=== PATIENT | male | born 1975 | race Two or more races ===

== ENCOUNTER 2020-10-25 02:50 | Emergency (ER) | payer BC, OTHER ==
[2020-10-25] MEDS ORDERED: Ketorolac 15 MG/ML SDV IM ONE (03:30)
--- NOTE | 2020-10-25 05:03 | EDM.PDOC ---
ED HPI GENERAL MEDICAL PROBLEM - General Chief Complaint: Respiratory Problem Stated Complaint: FEVER, COLD SYMPTOMS, COVID EXPOSURE Time Seen by Provider: 10/25/20 03:00 - History of Present Illness INITIAL COMMENTS - FREE TEXT/NARRATIVE: CHIEF COMPLAINT(S): Headache HISTORY OF PRESENT ILLNESS: This is a 45-year-old man with a past medical history of hypertension and prior history of migraine who comes to the emergency department with a chief complaint of headache. The patient states that he presents to the emergency department because he has had a fogginess in his brain to where he can think and feels like his head is heavy. He states that he has a headache which is located throughout his head not any specific area not associated with any numbness, tingling, weakness, trouble walking, trouble speaking, trouble swallowing. He describes the pain as dull and throbbing rated 4-5 out of 10 not associated with any light sensitivity. He denies any aggravating factors or relieving factors. He states that he did take ibuprofen earlier today but it did not seem to help. He denies any runny nose, shortness of breath, congestion. He states that he feels like his lungs are dry but denies any cough or shortness of breath. He states that he is mainly concerned because his brother was just tested positive for Covid and he was with him. He denies any other symptoms. He denies any history of CAD or CHF prior history of DVT or PE or recent travel or recent surgery. REVIEW OF SYSTEMS: Constitutional: Denies fever, chills. Eyes: Denies eye pain Ears, Nose, Mouth, & Throat: Denies earache, sore throat, runny nose Cardiovascular: Denies chest pain Respiratory: Positive for dry lungs. Denies shortness of breath or cough Gastrointestinal: Denies Nausea, vomiting, diarrhea, hematochezia. Genitourinary: Denies hematuria Skin:Denies a rash MSK: Denies joint pain Neurological: Positive for headache. Denies numbness, tingling, weakness Psychiatric: Denies depression PAST MEDICAL HISTORY: As per history of present illness and as reviewed below otherwise noncontributory. SURGICAL HISTORY: As per history of present illness and as reviewed below otherwise noncontributory. SOCIAL HISTORY: As per history of present illness and as reviewed below otherwise noncontributory. FAMILY HISTORY: As per history of present illness and as reviewed below otherwise noncontributory. EXAMINATION OF ORGAN SYSTEMS/BODY AREAS: Constitutional: Blood pressure was 138/83, heart rate 103, respiratory rate 18 with an oxygen saturation 94% on room air. Temperature 37.5 General: Overall well-appearing man who is in no acute distress. Psychiatric: Appropriate mood and affect. Eyes: No scleral icterus or conjunctival erythema pupils are equal round reactive to light. Extraocular movements intact. No vertical or horizontal nystagmus. ENMT: Moist mucous membranes. No pharyngeal erythema Cardiovascular: Regular, rate, and rhythm. No gallops, murmurs, or rubs. Bilateral upper extremity pulses symmetric and intact. No peripheral edema. No JVD. Respiratory: Lungs clear to auscultation bilaterally. No wheezes, rales, or rhonchi. Patient is speaking in full sentences. Gastrointestinal: Soft, non-tender, non-distended. Normoactive bowel sounds Genitourinary: No suprapubic tenderness Musculoskeletal: Normal range of motion. Skin: No lesions or abrasions. Neurological: AOx4. CN grossly intact. Stregth 5/5 in bilateral upper and lower extremity. Sensation is intact bilaterally in upper and lower extremity. Gait appears normal. Finger to nose, heel to lopez, rapid alternating movements intact. MEDICAL DECISION MAKING AND COURSE IN THE ED WITH INTERPRETATION/REVIEW OF DIAGNOSTIC STUDIES: This is a 45-year-old man and with a past medical history of hypertension and migraine who comes to the emergency department with borderline hypoxia with a known Covid exposure who is experiencing a headache who is neurologically intact. At this time we will provide the patient with Toradol for pain relief. I do not believe any labs or imaging are indicated. Will obtain a Covid swab. Laboratory: Covid was positive After lab I did discuss the results with the patient. I did discuss him at this time that he needed to quarantine and that he should continue to treat with Tylenol and Motrin and to purchase an [id number] pulse oximetry. He is to return for any new or worsening symptoms and strict return precautions were described to the patient. He was amenable to discharge and had no further questions. DISPOSITION: The patient was discharged home in stable condition. The patient will follow up with his primary care physician. CONDITION: Fair PROCEDURES: None FINAL IMPRESSION(S)/DIAGNOSES: 1. Acute headache likely secondary to COVID-19 2. Acute COVID-19 infection Juan Haji M.D. - Related Data Allergies Allergy/AdvReac Type Severity Reaction Status Date / Time diclofenac Allergy Vomiting Verified 10/25/20 03:23 Home Meds: Home Meds lisinopriL [Lisinopril] 20 mg PO DAILY 10/25/20 [History] Past Medical History Other HEENT History: complains of right ear irritation; no drainage, oral sx Cardiovascular History: Reports: Hypertension Social & Family History - Family History Family Medical History: No Pertinent Family History - Caffeine Use Caffeine Use: Reports: Coffee - Recreational Drug Use Recreational Drug Use: No ED ROS GENERAL - Review of Systems Review Of Systems: See Below ED EXAM, GENERAL - Physical Exam Exam: See Below Course - Vital Signs Last Recorded V/S: Last Vital Signs Temp 37.5 C 10/25/20 03:24 Pulse 98 10/25/20 05:18 Resp 18 10/25/20 05:18 BP 135/72 10/25/20 05:18 Pulse Ox 95 10/25/20 05:18 - Orders/Labs/Meds Labs: Laboratory Tests 10/25/20 Range/Units 03:45 SARS-CoV-2 RNA (ED) POSITIVE H (NEGATIVE) Meds: Medications Discontinued Medications Generic Name Dose Route Start Last Admin Trade Name Marylu PRN Reason Stop Dose Admin Ketorolac Tromethamine 15 mg 10/25/20 03:30 10/25/20 03:42 Toradol IM 10/25/20 03:31 15 mg ONETIME ONE Administration Departure - Departure Time of Disposition: 05:03 Disposition: Home, Self-Care 01 Condition: Fair Clinical Impression: COVID-19 - Discharge Information *PRESCRIPTION DRUG MONITORING PROGRAM REVIEWED*: No *COPY OF PRESCRIPTION DRUG MONITORING REPORT IN PATIENT DAVON: No Instructions: COVID-19 Frequently Asked Questions, COVID-19, What You Should Know About COVID-19 to Protect Yourself and Others - CDC, 10 Things You Can Do to Manage Your COVID-19 Symptoms at Home - [facility] - Forms: ED Department Discharge Additional Instructions: Your evaluated today on an emergent basis. At this time your symptoms are due to COVID-19. As always we recommend a 10 to 14-day quarantine. Please use Tylenol and Motrin for pain and fever. Please purchase an [id number] pulse oximetry. If your oxygen saturation is less than 92% persistently or if you develop worsening shortness of breath and cough with green sputum please return to the emergency department. Please follow-up with primary care physician Na Acosta [facility] [address] [place] [address] [facility] [address] [place] [id number] The patient is informed of any results of their evaluation and diagnostic workup and all questions are answered. They are given discharge instructions and return precautions. The patient is stable for discharge. The patient states they understand and agree with the plan and that they will return if their symptoms get worse or if they have any new concerns. The following information is given to patients seen in the emergency department who are being discharged to home. This information is to outline your options for follow-up care. We provide all patients seen in our emergency department with a follow-up referral. The need for follow-up, as well as the timing and circumstances, are variable depending upon the specifics of your emergency department visit. If you don't have a primary care physician on staff, we will provide you with a referral. We always advise you to contact your personal physician following an emergency department visit to inform them of the circumstance of the visit and for follow-up with them and/or the need for any referrals to a consulting s pecialist. The emergency department will also refer you to a specialist when appropriate. This referral assures that you have the opportunity for follow-up care with a specialist. All of these measure are taken in an effort to provide you with optimal care, which includes your follow-up. Under all circumstances we always encourage you to contact your private physician who remains a resource for coordinating your care. When calling for follow-up care, please make the office aware that this follow-up is from your recent emergency room visit. If for any reason you are refused follow-up, please contact the [facility] at and asked to speak to the emergency department charge nurse. Sepsis Event Note (ED) - Evaluation Sepsis Screening Result: No Definite Risk
[2020-10-25 06:26] VITALS: BP 135/72; PULSE 98
== END 2020-10-25 05:18 | disposition home or self-care (01) ==
LOC: MW.ED 02:50
DX: U07.1 COVID-19 (principal); I10 Essential (primary) hypertension
CPT/HCPCS: 87635; 96372; 99284; J1885; 99282; U0002

== ENCOUNTER 2021-07-30 08:18 | Day surgery (SDC) | payer BC, OTHER ==
[~2021-07-30 08:18] MED LIST: Lactated Ringers 1,000 ML IV SCH
--- NOTE | 2021-07-30 08:49 | PCM.PREANE ---
Preanesthetic Assessment - Procedure Proposed Procedure: Colonoscopy - Anesthesia/Transfusion/Family Hx Anesthesia History: Prior Anesthesia Without Reaction Family History of Anesthesia Reaction: No Transfusion History: No Prior Transfusion(s) - Review of Systems General: No Symptoms Pulmonary: No Symptoms (ANASTACIA uses CPAP) Cardiovascular: No Symptoms (HTN) Gastrointestinal: No Symptoms Neurological: No Symptoms Other: Reports: None - Physical Assessment NPO Status Date: 07/29/21 NPO Status Time: 23:59 Vital Signs: Last Vital Signs Temp 96.8 F L 07/30/21 08:33 Pulse 63 07/30/21 08:33 Resp 14 07/30/21 08:33 BP 132/84 07/30/21 08:33 Pulse Ox 97 07/30/21 08:33 Height: 6 ft 2 in Weight: 117.027 kg (obesity) ASA Class: 2 Mental Status: Alert & Oriented x3 Airway Class: Mallampati = 3 Dentition: Reports: Normal Dentition Thyro-Mental Finger Breadths: 3 Mouth Opening Finger Breadths: 3 - Allergies Allergies/Adverse Reactions: Allergies Allergy/AdvReac Type Severity Reaction Status Date / Time diclofenac Allergy Vomiting Verified 07/26/21 12:46 - Acknowledgements Anesthesia Type Planned: General Anesthesia Pt an Appropriate Candidate for the Planned Anesthesia: Yes Alternatives and Risks of Anesthesia Discussed w Pt/Guardian: Yes Pt/Guardian Understands and Agrees with Anesthesia Plan: Yes PreAnesthesia Questionnaire HEENT History: Reports: Other (See Below) Other HEENT History: wears glasses Cardiovascular History: Reports: Hypertension Respiratory History: Reports: Sleep Apnea Other Respiratory History: uses CPAP every night Gastrointestinal History: Reports: Chronic Constipation, Chronic Diarrhea Other Gastrointestinal History: recent episodes of rectal bleeding Genitourinary History: Reports: None Musculoskeletal History: Reports: Back Pain, Chronic, Fracture Other Musculoskeletal History: hx of fx thumb Neurological History: Reports: None Psychiatric History: Reports: None Endocrine/Metabolic History: Reports: Obesity/BMI 30+, Other (See Below) Other Endocrine/Metabolic History: Pre-diabetic Hematologic History: Reports: None Immunologic History: Reports: None Oncologic (Cancer) History: Reports: None Dermatologic History: Reports: None - Past Surgical History Head Surgeries/Procedures: Reports: None HEENT Surgical History: Reports: Oral Surgery Other HEENT Surgeries/Procedures: wisdom teeth extraction - SUBSTANCE USE Tobacco Use Status *Q: Never Tobacco User Recreational Drug Use History: No - HOME MEDS Home Medications: Home Meds Docusate Sodium [Colace] 100 mg PO BID 07/26/21 [History] Methylcellulose [Fiber] 1 cap PO ASDIRECTED 07/26/21 [History] Telmisartan 20 mg PO QAM 07/26/21 [History] - CURRENT (IN HOUSE) MEDS Current Meds: Current Medications Lactated Ringer's (Ringers, Lactated) 1,000 mls @ 125 mls/hr IV ASDIRECTED [facility] Last Admin: 07/30/21 08:38 Dose: 125 mls/hr Documented by:
[2021-07-30] MEDS ORDERED: propofoL 50 ML ONE (08:58)
[2021-07-30] MEDS ORDERED: fentaNYL 100 MCG/2 ML SDV ONE (09:25)
--- NOTE | 2021-07-30 10:07 | PCM.OPNOTE ---
- General Post-Op/Procedure Note Date of Surgery/Procedure: 07/30/21 Operative Procedure(s): Colonoscopy with rectal biopsy Pre Op Diagnosis: Rectal bleeding Post-Op Diagnosis: Mild petechial changes in the rectum. Anesthesia Technique: MAC (ASA II) Primary Surgeon: Michael Ricketts Condition: Good Free Text/Narrative:: DICTATION [id number] CPT CODE 90816
--- NOTE | 2021-07-30 10:12 | PCM.POSTAN ---
POST ANESTHESIA ASSESSMENT - MENTAL STATUS Mental Status: Somnolent - VITAL SIGNS Vital Signs: Last Vital Signs Temp 96.8 F L 07/30/21 08:33 Pulse 63 07/30/21 08:33 Resp 14 07/30/21 08:33 BP 132/84 07/30/21 08:33 Pulse Ox 97 07/30/21 08:33 - RESPIRATORY Respiratory Status: Respiratory Rate WNL, Airway Patent, O2 Saturation Stable - CARDIOVASCULAR CV Status: Pulse Rate WNL, Blood Pressure Stable - GASTROINTESTINAL GI Status: No Symptoms - PAIN Free Text/Narrative:: Resting comfortable - POST OP HYDRATION Hydration Status: Adequate & Stable
[2021-07-30] MEDS ORDERED: Lactated Ringers 1,000 ML IV SCH (10:15)
--- NOTE | 2021-07-30 10:15 | PCM48HPAN ---
Post Anesthesia Note - EVALUATION WITHIN 48HRS OF ANESTHETIC Vital Signs in Normal Range: Yes Patient Participated in Evaluation: Yes Respiratory Function Stable: Yes Airway Patent: Yes Cardiovascular Function Stable: Yes Hydration Status Stable: Yes Pain Control Satisfactory: Yes Nausea and Vomiting Control Satisfactory: Yes Mental Status Recovered: Yes Vital Signs: Last Vital Signs Temp 96.8 F L 07/30/21 08:33 Pulse 63 07/30/21 08:33 Resp 14 07/30/21 08:33 BP 132/84 07/30/21 08:33 Pulse Ox 97 07/30/21 08:33 - COMMENTS/OBSERVATIONS Free Text/Narrative:: Pt doing well post-op. VSS. No apparent anesthetic complications. Dr. Popeye Zhou
[2021-07-30 10:31] VITALS: BP 122/69; PULSE 48
--- NOTE | 2021-07-30 13:22 | OR ---
SURGEON: Michael Ricketts M.D. DATE OF PROCEDURE: 07/30/2021 OPERATION PERFORMED: Colonoscopy with rectal biopsy. PRIMARY SURGEON: Michael Ricketts M.D. ANESTHESIA: MAC. ASA CLASSIFICATION: II. PREOPERATIVE DIAGNOSIS: Rectal bleeding. POSTOPERATIVE DIAGNOSIS: Mild petechial change in the rectum, no acute colitis. DESCRIPTION OF PROCEDURE: The patient was taken to the endoscopy room and positioned on the endoscopy table in the left lateral decubitus position. Time-out was called for appropriate identification of the patient and procedure. Monitored anesthesia care was provided. The colonoscope was inserted into the rectum and advanced with minimal difficulty to the cecum where the colonoscope was retroflexed to visualize the ascending colon from below. The colonoscope was then straightened and slowly withdrawn. The cecum, ascending colon, hepatic flexure, transverse colon, splenic flexure, descending colon, and sigmoid colon showed no tumors, polyps, diverticula, or angiodysplastic changes. Once the colonoscope was withdrawn to the rectum, there did appear to be some mild petechial changes. No acute colitis was noted. Biopsies of the rectum were obtained. The colonoscope was then retroflexed to visualize the anal orifice from above. Again, no tumors or polyps were seen and there were no acute hemorrhoidal changes. The colonoscope was then straightened, the rectum aspirated, and the colonoscope removed. The patient tolerated the procedure well and was taken to recovery room in stable condition. LOLIS / TOMMY /[id number]
== END 2021-07-30 10:40 | disposition home or self-care (01) ==
LOC: MW.SDS 08:18
PROVIDERS: ATTEND Surgery
DX: K62.5 Hemorrhage of anus and rectum (principal); I10 Essential (primary) hypertension; R79.89 Other specified abnormal findings of blood chemistry; G47.33 Obstructive sleep apnea (adult) (pediatric); E66.9 Obesity, unspecified; Z88.8 Allergy status to other drugs, medicaments and biological substances; Z79.899 Other long term (current) drug therapy; Z98.890 Other specified postprocedural states
CPT/HCPCS: 45380; J2704; J3010; J7120; 00811

== ENCOUNTER 2021-10-30 12:14 | Emergency (ER) | payer BC, OTHER ==
[2021-10-30] MEDS ORDERED: Sodium Chloride 0.9% 2.5 ML Syringe FLUSH PRN (12:39)
[2021-10-30] MEDS ORDERED: Sodium Chloride 0.9% 10 ML Syringe FLUSH PRN (12:39)
[2021-10-30] MEDS ORDERED: Sodium Chloride 0.9% 1,000 ML IV ONE (12:40)
[2021-10-30 13:27] LABS: BLOOD UREA NITROGEN,BUN 16 mg/dL (7.0-18.0); CARBON DIOXIDE,CO2 29.5 mmol/L (21.0-32.0); CHLORIDE,CL 99 mmol/L (98-107); ESTIMATED GFR > 60.0 ml/min; GLUCOSE RANDOM 99 mg/dL (74-106); POTASSIUM,K 3.9 mmol/L (3.5-5.1); SODIUM,NA 140 mmol/L (136-148)
[2021-10-30 13:44] LABS: CORONAVIRUS COVID-19 NAA NEGATIVE (NEGATIVE); INFLUENZA A NAA NEGATIVE (NEGATIVE); INFLUENZA B NAA NEGATIVE (NEGATIVE)
[2021-10-30 14:18] VITALS: BP 136/92; PULSE 58
== END 2021-10-30 14:14 | disposition home or self-care (01) ==
LOC: MW.ED 12:14
DX: R42 Dizziness and giddiness (principal); N39.0 Urinary tract infection, site not specified; R23.2 Flushing; I10 Essential (primary) hypertension; E66.9 Obesity, unspecified; Z68.31 Body mass index [BMI] 31.0-31.9, adult; Z88.8 Allergy status to other drugs, medicaments and biological substances; Z20.822 Contact with and (suspected) exposure to COVID-19
CPT/HCPCS: 0240U; 36415; 70450; 71045; 80053; 81001; 83735; 84484; 85025; 85610; 93005; 99284; J7030; 93010; J3490